=== PATIENT | male | born 1945 | race Caucasian/White ===

== ENCOUNTER 2020-01-01 07:34 | Outpatient (CLI) | payer MEDICARE, SELFPAY ==
[2020-01-01 08:11] LABS: Alanine Aminotransferase 18 U/L (4-50); Albumin Level 4.3 g/dL (3.5-5.1); Alkaline Phosphatase 55 U/L (38-126); Aspartate Amino Transferase 24 U/L (17-59); Bilirubin,Total 1.2 mg/dL (0.2-1.3); Blood Urea Nitrogen 26 mg/dL (9-20); Calcium 8.8 mg/dL (8.4-10.2); Carbon Dioxide 32 mmol/L (22-30); Chloride 101 mmol/L (98-107); Estimated Glomerular Filt Rate > 60; Glucose 109 mg/dL (75-110); Potassium 3.4 mmol/L (3.4-5.0); Sodium 138 mmol/L (137-145)
[2020-01-05 19:36] LABS: PSA, Free 1.87 ng/mL; PSA, Total 7.1 ng/mL (<=4.0); Percent Free Prostate Spec Ag 26 % (>25)
== END 2020-01-01 07:35 | disposition home or self-care (01) ==
LOC: ANHLAB 07:35
PROVIDERS: PCP Family Medicine; Visit Provider Family Medicine
DX: R97.20 Elevated prostate specific antigen [PSA] (principal); I10 Essential (primary) hypertension
CPT/HCPCS: 36415; 80053; 84153; 84154

== ENCOUNTER 2020-11-03 07:39 | Outpatient (CLI) | payer MEDICARE, SELFPAY ==
[2020-11-03 10:06] LABS: Prostate Specific Antigen 7.4 ng/mL (< OR = 4.0)
== END 2020-11-03 07:40 | disposition home or self-care (01) ==
PROVIDERS: PCP Family Medicine; Visit Provider Family Medicine
DX: R97.20 Elevated prostate specific antigen [PSA] (principal)
CPT/HCPCS: 36415; 84153

== ENCOUNTER → 2020-12-13 14:34 | Outpatient (CLI) | payer MEDICARE, SELFPAY ==
--- NOTE | ~2020-12-13 | XR_ITS ---
EXAMINATION: XR lumbar spine 6V w bending EXAM DATE: 12/13/2020 15:36 INDICATION: M54.5 - Low back pain. Right-sided low back pain extending down right leg for one month. TECHNIQUE: Lumber spine frontal, lateral, bilateral oblique projections. Coned down frontal and lat eral L5-S1 lumbar projections for interpretation. The exam was performed on 12/13/2020 15:36. There a re no prior studies for comparison. FINDINGS: There is 2-3 mm retrolisthesis L2 on L3, L3 on L4 and L5 on S1 on the lateral projections. Moderate disc disease at all lumbar levels. L5-S1 vacuum disc phenomenon. Moderate L5-S1 and L4-5 fac et arthropathy, mild to moderate at the levels above. No spondylolysis suspected. Sacrum, sacroiliac joints, sacral arcuate lines are intact. IMPRESSION: 1. Moderate lumbar disc disease and lower lumbar facet arthropathy. Reviewed, dictated and finalized at location A.
== END ==
PROVIDERS: Visit Provider Family Medicine
DX: M51.36 Other intervertebral disc degeneration, lumbar region (principal)
CPT/HCPCS: 72114

== ENCOUNTER 2021-03-29 07:20 | Outpatient (CLI) | payer MEDICARE, SELFPAY ==
[2021-04-01 17:24] LABS: PSA, Free 2.52 ng/mL; PSA, Total 9.1 ng/mL (<=4.0); Percent Free Prostate Spec Ag 28 % (>25)
== END 2021-03-29 07:21 | disposition home or self-care (01) ==
PROVIDERS: PCP Family Medicine; Visit Provider Family Medicine
DX: R97.20 Elevated prostate specific antigen [PSA] (principal)
CPT/HCPCS: 36415; 84153; 84154

== ENCOUNTER 2022-01-17 09:33 | Outpatient (CLI) | payer MEDICARE, SELFPAY ==
--- NOTE | ~2022-01-17 | CT_ITS ---
EXAMINATION: CT abdomen pelvis w con DATE: 01/17/2022 10:06 INDICATION: Checking for prostate cancer TECHNIQUE: Computed tomography (CT) of the abdomen and pelvis was performed with 100 CC Omnipaque 300 intravenous contrast. Automated exposure control and iterative reconstruction technique were employe d. Exam dose: 943.96 mGy-cm total exam DLP. COMPARISON: None. FINDINGS: There is mild discoid atelectasis or scarring at the left lung base. No infiltrate or conso lidation at the lung bases. No pericardial or pleural effusion. There is an approximately 8 mm stone in the dependent aspect of the gallbladder at the gallbladder ne ck. No gallbladder wall thickening or abnormal gallbladder distention or pericholecystic fluid or fat stranding. No hepatic, splenic, pancreatic, adrenal or renal space-occupying mass lesion is evident. No bile bere t or pancreatic duct dilatation Normal morphology of the adrenal glands. No renal mass lesion or urinary tract calculus or hydroureteronephrosis. There is very prominent enlargement of the prostate gland and prominent diffuse thickening of the uri nary bladder wall, likely due to bladder outlet obstruction. There is atherosclerotic calcification but normal caliber of the abdominal aorta and iliac arteries. No intraperitoneal or retroperitoneal or pelvic mass lesion or enlarged lymph nodes are noted. Normal appendix. Minimal colonic diverticulosis; no evidence of diverticulitis. No bowel obstruction or intraperitoneal free air. Bilateral fat-containing inguinal hernias. Degenerative changes of the thoracic and lumbar spine. No suspicious osteolytic or osteoblastic lesio ns are noted. IMPRESSION: Prominent prostate enlargement and diffuse bladder wall thickening consistent with bladd er outlet obstruction Cholelithiasis Minimal colonic diverticulosis Normal appendix Bilateral fat-containing inguinal hernias Reviewed, dictated and finalized at Location A. Reviewed, dictated and finalized at location A. IMPRESSION: Prominent prostate enlargement and diffuse bladder wall thickening consistent with bladder outlet obstruction Cholelithiasis Minimal colonic diverticulosis Normal appendix Bilateral fat-containing inguinal hernias
--- NOTE | ~2022-01-17 | NM_ITS ---
EXAMINATION: NM bone scan whole body DATE: 01/17/2022 14:05 INDICATION: Prostate cancer TECHNIQUE: 23.1 mCi Tc-99m HDP was administered intravenously. Delayed whole-body scintigrams were o btained. COMPARISON: CT abdomen and pelvis dated 01/17/2022 FINDINGS: Mild joint centered uptake at the right ankle and hindfoot as well as a few metacarpophalangeal and i nterphalangeal joints of the bilateral hands and at the superolateral rim of the right acetabulum kne e. There are small marginal osteophytes and degenerative subarticular cystic changes. Mild uptake at the right greater trochanter with small amount of corresponding enthesopathic calcification. No other or foci suspicious bone uptake to suggest metastatic disease. IMPRESSION: 1. No evident metastatic disease. Reviewed, dictated and finalized at location B.
[2022-01-17 09:58] LABS: Estimated Glomerular Filt Rate > 60
== END 2022-01-17 09:34 | disposition home or self-care (01) ==
LOC: ANHIMG 09:35
PROVIDERS: PCP Family Medicine; Visit Provider Urology
DX: C61 Malignant neoplasm of prostate (principal); K80.20 Calculus of gallbladder without cholecystitis without obstruction; K57.30 Diverticulosis of large intestine without perforation or abscess without bleeding; K40.20 Bilateral inguinal hernia, without obstruction or gangrene, not specified as recurrent
CPT/HCPCS: 74177; 78306; A9561; Q9967

== ENCOUNTER 2022-04-06 07:33 | Outpatient (CLI) | payer MEDICARE, SELFPAY ==
[2022-04-06 07:53] LABS: Basophils Percent Auto 0.5 % (0.2-1.2); Eosinophils Absolute Auto 0.5 K/mm3 (0-0.3); Hematocrit 41.6 % (42.0-52.0); Immature Granulocyte Absolute 0.02 K/mm3 (0.00-0.031); Immature Granulocyte Percent A 0.4 % (0-0.5); Lymphocytes Absolute Auto 1.72 K/mm3 (0.9-3.2); Lymphocytes Percent Auto 30.9 % (18.3-44.2); Mean Corpuscular HGB Conc 33.7 g/dl (32-36); Mean Corpuscular Hemoglobin 31.5 pg (26-34); Mean Corpuscular Volume 93.7 fl (80-100); Mean Platelet Volume 9.6 fl (7.4-10.4); Monocytes Absolute Auto 0.6 K/mm3 (0.1-0.6); Monocytes Percent Auto 9.9 % (2.6-8.5); Neutrophils Absolute Auto 2.7 K/mm3 (1.3-6.7); Neutrophils Percent Auto 49.3 % (45.5-73.1); Platelet Count Result 223 k/mm3 (150-375); Red Blood Count 4.44 M/mm3 (4.6-6.20); Red Cell Distribution Width 12.8 % (11.5-14.5); White Blood Count 5.6 K/mm3 (4.5-10.0)
[2022-04-06 08:06] LABS: Alanine Aminotransferase 27 U/L (6-50); Albumin Level 4.4 g/dL (3.5-5.1); Alkaline Phosphatase 55 U/L (38-126); Anion Gap 12 mmol/L (8-16); Aspartate Amino Transferase 28 U/L (17-59); Bilirubin,Total 0.7 mg/dL (0.2-1.3); Blood Urea Nitrogen 29 mg/dL (9-20); Calcium 8.9 mg/dL (8.4-10.2); Carbon Dioxide 32 mmol/L (22-30); Chloride 99 mmol/L (98-107); Cholesterol 243 mg/dL (0-200); Estimated Glomerular Filt Rate > 60; Glucose 111 mg/dL (65-110); HDL Direct 50 mg/dL; Potassium 3.5 mmol/L (3.4-5.0); Sodium 143 mmol/L (137-145); Triglycerides 157 mg/dL (<150)
[2022-04-06 08:17] LABS: LDL Cholesterol Direct 134 mg/dL
[2022-04-06 09:23] LABS: Free T4 Free Thyroxine Reflex 1.14 ng/dL (0.78-2.19)
[2022-04-06 10:13] LABS: Total Triiodothyronine (T3) 1.15 NG/ML (0.97-1.69)
== END 2022-04-06 07:34 | disposition home or self-care (01) ==
LOC: ANHLAB 07:39
PROVIDERS: PCP Family Medicine; Visit Provider Physician Assistant
DX: E78.2 Mixed hyperlipidemia (principal); I10 Essential (primary) hypertension; Z79.899 Other long term (current) drug therapy; Z00.00 Encounter for general adult medical examination without abnormal findings
CPT/HCPCS: 36415; 80053; 80061; 84439; 84443; 84480; 85025

== ENCOUNTER → 2022-12-06 11:05 | Outpatient (CLI) | payer MEDICARE, SELFPAY ==
--- NOTE | ~2022-12-06 | MR_ITS ---
MRI of the lumbar spine Clinical History: Back pain Technique: Axial T2-weighted images, and sagittal T1-weighted, T2-weighted, and T2 fat-sat images wer e acquired. Findings: No fracture identified. There is a 3 mm retrolisthesis of L5 over S1. No suspicious bone ma rrow signal abnormality seen. At L1-L2, there is advanced degenerative disc and mild disc bulge. There is mild to moderate facet ar thropathy. No central canal stenosis. There is mild to moderate bilateral neural foraminal narrowing. At L2-L3, there is diffuse disc bulge and mild to moderate facet arthropathy. There is mild to modera te thecal sac compression/spinal canal stenosis. There is moderate bilateral neural foraminal narrowi ng. At L3-L4, there is disc bulge and facet arthropathy, which contribute to mild to moderate thecal sac compression. There is moderate right neural foraminal narrowing and moderate to severe left neural fo raminal narrowing. At L4-L5, there is disc bulge and facet arthropathy. There is mild central canal stenosis. There is s evere left neural foraminal narrowing and moderate to severe right neural foraminal narrowing. At L5-S1, there is disc bulge and facet arthropathy. No central canal stenosis. There is severe bilat eral neural foraminal narrowing, right worse than left. Paravertebral soft tissues are unremarkable. Impression: Moderate degenerative spondylosis, as noted above. There is multilevel neural foraminal narrowing, as detailed above. There is mild to moderate thecal sac compression at L2-L3, L3-L4, L4-L5, as detailed above. 3 mm retrolisthesis of L5 over S1. Reviewed, dictated and finalized at [facility]. Impression: Moderate degenerative spondylosis, as noted above. There is multilevel neural f oraminal narrowing, as detailed above. There is mild to moderate thecal sac com pression at L2-L3, L3-L4, L4-L5, as detailed above. 3 mm retrolisthesis of L5 over S1.
== END ==
PROVIDERS: PCP Family Medicine; Visit Provider Family Medicine
DX: M47.816 Spondylosis without myelopathy or radiculopathy, lumbar region (principal); M43.17 Spondylolisthesis, lumbosacral region
CPT/HCPCS: 72148

== ENCOUNTER 2022-12-09 07:32 | Outpatient (CLI) | payer MEDICARE, SELFPAY ==
[2022-12-09 09:11] LABS: Alanine Aminotransferase 26 U/L (6-50); Albumin Level 4.2 g/dL (3.5-5.1); Alkaline Phosphatase 54 U/L (38-126); Anion Gap 3 mmol/L (8-16); Aspartate Amino Transferase 30 U/L (17-59); Blood Urea Nitrogen 20 mg/dL (9-20); Calcium 9.1 mg/dL (8.4-10.2); Carbon Dioxide 37 mmol/L (22-30); Chloride 99 mmol/L (98-107); Cholesterol 230 mg/dL (0-200); Estimated Glomerular Filt Rate > 60; Glucose 94 mg/dL (65-110); HDL Direct 50 mg/dL; Potassium 3.4 mmol/L (3.4-5.0); Sodium 139 mmol/L (137-145); Triglycerides 175 mg/dL (<150)
[2022-12-09 09:22] LABS: LDL Cholesterol Direct 125 mg/dL
[2022-12-09 10:27] LABS: Hemoglobin A1C 5.2 % (<5.7)
== END 2022-12-09 07:33 | disposition home or self-care (01) ==
PROVIDERS: PCP Family Medicine; Visit Provider Family Medicine
DX: E78.2 Mixed hyperlipidemia (principal); E03.8 Other specified hypothyroidism; R73.01 Impaired fasting glucose; Z79.899 Other long term (current) drug therapy
CPT/HCPCS: 36415; 80053; 80061; 83036; 84443

== ENCOUNTER 2022-12-18 09:00 | Outpatient (NON) | payer MEDICARE, SELFPAY | END 2022-12-18 09:01 | disposition home or self-care (01) | LOC: ANHLAB 12-19 07:05 | PROVIDERS: PCP Family Medicine; Visit Provider Internal Medicine Gastroenterology | DX: Z12.11 Encounter for screening for malignant neoplasm of colon (principal) | CPT/HCPCS: 88305 ==

== ENCOUNTER 2023-05-01 06:58 | Outpatient (CLI) | payer MEDICARE, SELFPAY ==
[2023-05-01 07:46] LABS: Basophils Percent Auto 0.5 % (0.2-1.2); Eosinophils Absolute Auto 0.4 K/mm3 (0-0.3); Eosinophils Percent Auto 9.8 % (0-4.4); Hematocrit 36.9 % (42.0-52.0); Hemoglobin 11.7 g/dL (14.0-18.0); Immature Granulocyte Absolute 0.01 K/mm3 (0.00-0.031); Immature Granulocyte Percent A 0.2 % (0-0.5); Lymphocytes Absolute Auto 1.11 K/mm3 (0.9-3.2); Lymphocytes Percent Auto 26.5 % (18.3-44.2); Mean Corpuscular HGB Conc 31.7 g/dl (32-36); Mean Corpuscular Hemoglobin 31.1 pg (26-34); Mean Corpuscular Volume 98.1 fl (80-100); Mean Platelet Volume 10.1 fl (7.4-10.4); Monocytes Absolute Auto 0.5 K/mm3 (0.1-0.6); Monocytes Percent Auto 12.9 % (2.6-8.5); Neutrophils Absolute Auto 2.1 K/mm3 (1.3-6.7); Neutrophils Percent Auto 50.1 % (45.5-73.1); Platelet Count Result 183 k/mm3 (150-375); Red Blood Count 3.76 M/mm3 (4.6-6.20); Red Cell Distribution Width 13.5 % (11.5-14.5); White Blood Count 4.2 K/mm3 (4.5-10.0)
[2023-05-01 08:54] LABS: Alanine Aminotransferase 46 U/L (6-50); Albumin Level 4.2 g/dL (3.5-5.1); Alkaline Phosphatase 51 U/L (38-126); Anion Gap 7 mmol/L (8-16); Aspartate Amino Transferase 35 U/L (17-59); Blood Urea Nitrogen 26 mg/dL (9-20); Calcium 9.2 mg/dL (8.4-10.2); Carbon Dioxide 29 mmol/L (22-30); Chloride 103 mmol/L (98-107); Cholesterol 186 mg/dL (0-200); Estimated Glomerular Filt Rate > 60; Glucose 99 mg/dL (65-110); HDL Direct 48 mg/dL; Potassium 3.2 mmol/L (3.4-5.0); Sodium 139 mmol/L (137-145); Triglycerides 123 mg/dL (<150)
[2023-05-01 09:04] LABS: LDL Cholesterol Direct 102 mg/dL
[2023-05-01 09:42] LABS: Hepatitis C Virus Antibody Negative (Negative)
[2023-05-01 11:47] LABS: Free T4 Free Thyroxine Reflex 1.07 ng/dL (0.78-2.19)
[2023-05-01 13:10] LABS: Total Triiodothyronine (T3) 1.19 NG/ML (0.97-1.69)
== END 2023-05-01 06:59 | disposition home or self-care (01) ==
LOC: ANHLAB 07:00
PROVIDERS: PCP Family Medicine; Visit Provider Physician Assistant
DX: E78.2 Mixed hyperlipidemia (principal); I10 Essential (primary) hypertension; E66.9 Obesity, unspecified; Z79.899 Other long term (current) drug therapy
CPT/HCPCS: 36415; 80053; 80061; 84439; 84443; 84480; 85025; 86803

== ENCOUNTER 2023-05-03 07:37 | Outpatient (CLI) | payer MEDICARE, SELFPAY ==
[2023-05-03 08:53] LABS: Basophils Percent Auto 0.8 % (0.2-1.2); Eosinophils Absolute Auto 0.4 K/mm3 (0-0.3); Eosinophils Percent Auto 10.1 % (0-4.4); Hemoglobin 11.6 g/dL (14.0-18.0); Immature Granulocyte Absolute 0.01 K/mm3 (0.00-0.031); Immature Granulocyte Percent A 0.3 % (0-0.5); Lymphocytes Absolute Auto 0.96 K/mm3 (0.9-3.2); Lymphocytes Percent Auto 24.8 % (18.3-44.2); Mean Corpuscular HGB Conc 33.1 g/dl (32-36); Mean Corpuscular Hemoglobin 31.5 pg (26-34); Mean Corpuscular Volume 95.1 fl (80-100); Mean Platelet Volume 10.5 fl (7.4-10.4); Monocytes Absolute Auto 0.5 K/mm3 (0.1-0.6); Monocytes Percent Auto 13.2 % (2.6-8.5); Neutrophils Percent Auto 50.8 % (45.5-73.1); Platelet Count Result 190 k/mm3 (150-375); Red Blood Count 3.68 M/mm3 (4.6-6.20); Red Cell Distribution Width 13.4 % (11.5-14.5); Reticulocyte Hemoglobin Conten 34.2 pg (28.2-35.7); Reticulocyte Percent 2.26 % (0.7-4.3); Reticulocytes Absolute 0.08 M/mm3 (0.02-0.1); White Blood Count 3.9 K/mm3 (4.5-10.0)
[2023-05-03 09:11] LABS: Anion Gap 6 mmol/L (8-16); Blood Urea Nitrogen 22 mg/dL (9-20); Calcium 9.2 mg/dL (8.4-10.2); Carbon Dioxide 30 mmol/L (22-30); Chloride 100 mmol/L (98-107); Estimated Glomerular Filt Rate > 60; Glucose 106 mg/dL (65-110); Potassium 3.2 mmol/L (3.4-5.0); Sodium 136 mmol/L (137-145)
== END 2023-05-03 07:38 | disposition home or self-care (01) ==
LOC: ANHLAB 07:38
PROVIDERS: PCP Family Medicine; Visit Provider Family Medicine
DX: D64.9 Anemia, unspecified (principal); E87.6 Hypokalemia
CPT/HCPCS: 36415; 80048; 82728; 84443; 85025; 85046

== ENCOUNTER 2023-05-12 08:01 | Emergency (ER) | payer MEDICARE, SELFPAY ==
--- NOTE | ~2023-05-12 | XR_ITS ---
EXAMINATION: XR chest 2V DATE: 05/12/2023 08:24 INDICATION: Cough and wheezing TECHNIQUE: Frontal and lateral views of the chest are obtained COMPARISON: None available FINDINGS: There is mild interstitial pattern of the lung bases. There are small pleural effusions. No pneumothorax is identified. The cardiomediastinal silhouette is normal. There is moderate thoracic s pondylosis. IMPRESSION: 1. Mild pulmonary edema and small pleural effusions. Reviewed, dictated and finalized at location F.
[2023-05-12 08:13] VITALS: BP 188/89; PULSE 55; RESP 18; TEMP 36.1; O2SAT 96
--- NOTE | 2023-05-12 08:17 | ED.URI ---
HPI - URI/Sore Throat General Chief Complaint: Upper Respiratory Infection Stated Complaint: COUGH/WHEEZING Source: patient, family and RN notes reviewed History of Present Illness HPI Narrative: 78 yo M presents to urgent care with complaints of having sinus and respiratory issues for over a month. Pt states he took a course of Doxycycline with not much improvement. Pt reports continued congestion, cough, and wheezing. Pt states his symptoms are intermittent and mostly in the morning. Pt states his symptoms will sometimes improve throughout the day and sometimes not. Pt does admit being around a bonfire last night. Pt states he and his are leaving for [place] at the end of the week and he is hoping to feel better. Denies any fevers, chills, N/V, or chest pain. States he sometimes feels SOB. Pt did use his 's inhaler the other day with good relief. Related Data Home Medications Medication Instructions Recorded Confirmed timolol maleate 0.5 % eye drops 1 drop LEFT EYE DAILY 06/26/19 05/12/23 antiarthritic combination no.2 900 900 mg PO BID 03/02/20 05/12/23 mg tablet (glucosamine-chondroitin) aspirin 81 mg tablet,delayed 81 mg PO DAILY 03/02/20 05/12/23 release fluorouracil 5 % topical cream 1 applic topical BID PRN 11/05/20 05/12/23 Inflammation ibuprofen 200 mg tablet (IBU-200) 200 mg PO Q6H PRN Pain 12/08/22 05/12/23 calcium carbonate 600 mg-vitamin 600 tablet PO DAILY 03/05/23 05/12/23 D3 10 mcg (400 unit) chewable tablet (Calcium 600 with Vitamin D3) losartan 100 1 tablet PO DAILY 05/12/23 05/12/23 mg-hydrochlorothiazide 25 mg tablet Allergies Allergy/AdvReac Type Severity Reaction Status Date / Time Sulfa (Sulfonamide Allergy Intermediate RASH Verified 05/12/23 08:23 Antibiotics) lisinopril Allergy Unknown cough Verified 05/12/23 08:23 Penicillins Allergy Unknown Unknown Verified 05/12/23 08:23 potassium chloride Allergy Unknown Skin Verified 05/12/23 08:23 Reaction strawberry Allergy Unknown Skin Verified 05/12/23 08:23 Reaction sulfite Allergy Unknown Unknown Verified 05/12/23 08:23 Review of Systems Review of Systems: Pertinent positives and pertinent negatives per HPI. [facility] Past Medical History Medical History Chronic low back pain Chronic prostatitis Drug-induced glaucoma Essential (primary) hypertension Hx of radiation therapy Mixed hyperlipidemia Obesity (BMI 30-39.9) Prostate cancer Naila 9 Radiation Family History Family History Grandparent Diabetes mellitus Mother Diabetes mellitus Family history of kidney disease Father Family history of cardiovascular disease Other Hypertension Social History Social History Smoking status: Former smoker Smoking end date: 07/09/83 Alcohol intake: current Alcohol use details: 5x weekly Substance use: never Substance use type: does not use Lack of Transportation: No Lack of Food: Never True Current Housing: I Have Housing Concerned About Future Housing: No Difficulty Paying Gas/Electric Bills: No Difficulty Paying for Meds: No Currently Unemployed: No Education: High School Diploma/GED Difficulty w/ Childcare or Family Care: No Living arrangements: with family Spiritual care concerns: No Comments At the time of my signature, I reviewed and agree with the nursing past medical, surgical, social, and family history. There is no relevant family history pertinent to the patient complaint. Exam Narrative: GENERAL: This is a well-nourished, well-developed patient, in no apparent distress. HEAD: normocephalic, atraumatic. EYES: Sclera clear/white. Vision is grossly intact. EARS: External ears normal, auditory canals clear and without drainage, TMs normal without perforation. Hearing grossly intact.
== END 2023-05-12 09:00 | disposition home or self-care (01) ==
PROVIDERS: Emergency Provider Nurse Practitioner Family; PCP Family Medicine
DX: J40 Bronchitis, not specified as acute or chronic (principal); J32.9 Chronic sinusitis, unspecified; I10 Essential (primary) hypertension; E78.2 Mixed hyperlipidemia; Z85.46 Personal history of malignant neoplasm of prostate; Z79.899 Other long term (current) drug therapy; Z79.1 Long term (current) use of non-steroidal anti-inflammatories (NSAID); Z87.891 Personal history of nicotine dependence
CPT/HCPCS: 71046; 99213; G0463

== ENCOUNTER 2023-06-22 07:17 | Outpatient (CLI) | payer MEDICARE, SELFPAY ==
[2023-06-22 08:05] LABS: Anion Gap 6 mmol/L (8-16); Blood Urea Nitrogen 22 mg/dL (9-20); Calcium 8.9 mg/dL (8.4-10.2); Carbon Dioxide 29 mmol/L (22-30); Chloride 107 mmol/L (98-107); Estimated Glomerular Filt Rate > 60; Glucose 104 mg/dL (65-110); Potassium 3.6 mmol/L (3.4-5.0); Sodium 142 mmol/L (137-145)
== END 2023-06-22 07:18 | disposition home or self-care (01) ==
LOC: ANHLAB 07:18
PROVIDERS: PCP Family Medicine; Visit Provider Family Medicine
DX: E03.9 Hypothyroidism, unspecified (principal); E87.6 Hypokalemia
CPT/HCPCS: 36415; 80048; 84443

== ENCOUNTER 2023-10-09 07:09 | Outpatient (CLI) | payer MEDICARE, SELFPAY ==
[2023-10-09 07:59] LABS: Alanine Aminotransferase 18 U/L (6-50); Albumin Level 4.1 g/dL (3.5-5.1); Alkaline Phosphatase 65 U/L (38-126); Anion Gap 5 mmol/L (4-12); Aspartate Amino Transferase 24 U/L (17-59); Bilirubin,Total 0.9 mg/dL (0.2-1.3); Blood Urea Nitrogen 28 mg/dL (9-20); Carbon Dioxide 28 mmol/L (22-30); Chloride 107 mmol/L (98-107); Estimated Glomerular Filt Rate > 60; Glucose 104 mg/dL (65-110); Potassium 3.7 mmol/L (3.4-5.0); Sodium 140 mmol/L (137-145)
== END 2023-10-09 07:10 | disposition home or self-care (01) ==
PROVIDERS: PCP Family Medicine; Visit Provider Family Medicine
DX: E03.9 Hypothyroidism, unspecified (principal); E87.6 Hypokalemia
CPT/HCPCS: 36415; 80053; 84443

== ENCOUNTER 2023-12-14 13:22 | Outpatient (CLI) | payer MEDICARE, SELFPAY ==
--- NOTE | ~2023-12-14 | MR_ITS ---
Procedure: MR lumbar spine wo con Ordering provider: Kiran Briceno MD History: 78 years Male with . LUMBAR FORAMINAL STENOSIS . Comparison: December 06, 2022 Technique: MRI lumbar spine without contrast. FINDINGS: CONUS MEDULLARIS: Normal in position and appearance. The cord ends at the level of L1. LUMBAR VERTEBRAL BODIES: Minimal retrolisthesis of the level of L5-S1. No compression fracture or sub luxation. Normal marrow signal. DISK SPACES: Narrowing of the disc spaces L1-L2, L2-L3, L3-L4, L4-L5 and L5-S1. T12-L1: No stenosis. L1-L2: No stenosis. Diffuse disc bulge with bilateral narrowing of the foramina. No root compression . L2-L3: No stenosis. Diffuse disc bulge with bilateral narrowing of the foramina. Bilateral root comp ression. L3-L4: No stenosis. Diffuse disc bulge with bilateral narrowing of the foramina. Bilateral root compr ession. L4-L5: No stenosis. Diffuse disc bulge with bilateral narrowing of the foramina. Bilateral root comp ression. Bilateral facet joint disease. L5-S1: No stenosis. Diffuse disc bulge with bilateral narrowing of the foramina. Bilateral root comp ression. PARASPINOUS SOFT TISSUES: Normal. IMPRESSION: 1. Multilevel degenerative disc disease with multiple disc bulges and with neural impingement. No si gnificant change from previous examination. Reviewed, dictated and finalized at location A. IMPRESSION: 1. Multilevel degenerative disc disease with multiple disc bulges and with miguel ral impingement. No significant change from previous examination.
== END 2023-12-14 13:23 ==
PROVIDERS: PCP Neurological Surgery; Visit Provider Neurological Surgery
DX: M48.061 Spinal stenosis, lumbar region without neurogenic claudication (principal); M51.36 Other intervertebral disc degeneration, lumbar region
CPT/HCPCS: 72148

== ENCOUNTER 2024-02-28 07:19 | Outpatient (CLI) | payer MEDICARE, SELFPAY ==
[2024-02-28 08:01] LABS: Anion Gap 7 mmol/L (4-12); Blood Urea Nitrogen 24 mg/dL (9-20); Calcium 9.1 mg/dL (8.4-10.2); Carbon Dioxide 31 mmol/L (22-30); Chloride 102 mmol/L (98-107); Estimated Glomerular Filt Rate > 60; Glucose 99 mg/dL (65-110); Potassium 3.9 mmol/L (3.4-5.0); Sodium 140 mmol/L (137-145)
== END 2024-02-28 07:20 | disposition home or self-care (01) ==
LOC: ANHLAB 07:21
PROVIDERS: PCP Family Medicine; Visit Provider Family Medicine
DX: E87.6 Hypokalemia (principal); E03.9 Hypothyroidism, unspecified
CPT/HCPCS: 36415; 80048; 84443

== ENCOUNTER 2024-05-01 10:42 | Outpatient (CLI) | payer MEDICARE, SELFPAY ==
--- NOTE | ~2024-05-01 | MR_ITS ---
EXAMINATION: MR lumbar spine wo/w con DATE: 05/01/2024 11:35 INDICATION: Lumbar foraminal stenosis. TECHNIQUE: Magnetic resonance imaging (MRI) of the lumbar spine was performed without and with 20 mL MultiHance intravenous contrast. COMPARISON: Lumbar spine MRI 12/14/23 FINDINGS: There is 6 degrees dextrocurvature of lumbar spine. There is 3 mm retrolisthesis of L1 on L 2, L2 on L3, and L3 on L4. There is mild chronic anterior wedging of T11-L1 vertebral bodies. There i s moderately decreased disc height at L1-L2, severely decreased disc height at L2-L3 and L3-L4, moder ately decreased disc height at L4-L5, and severely decreased disc height at L5-S1. The distal spinal cord signal intensity is normal. The conus medullaris is at L1. There is clumping of the cauda equina at L3-L4, consistent with arachnoiditis. The following disc levels are specifically discussed: L1-L2: The disc is bulging. There is mild bilateral facet joint osteoarthritis. There is moderate susan ateral neural foraminal stenosis. There is mild central canal stenosis. L2-L3: The disc is bulging. There is mild bilateral facet joint osteoarthritis. There is mild right a nd moderate left neural foraminal stenosis. There is mild central canal stenosis. L3-L4: The disc is bulging. There is mild bilateral facet joint osteoarthritis. There is moderate susan ateral neural foraminal stenosis. There is mild central canal stenosis. L4-L5: The disc is bulging and has an annular fissure. There is mild right and moderate left facet louis int osteoarthritis. There is moderate bilateral neural foraminal stenosis. There is mild central seamus l stenosis. L5-S1: The disc is bulging and has an annular fissure. There is moderate bilateral facet joint osteoa rthritis. There is moderate bilateral neural foraminal stenosis. There is mild central canal stenosis . IMPRESSION: 1. Severe lumbar spondylosis, stable from 12/14/23. 2. Arachnoiditis. Reviewed, dictated and finalized at location A.
== END 2024-05-01 10:43 | disposition home or self-care (01) ==
PROVIDERS: PCP Family Medicine; Visit Provider Neurological Surgery
DX: M47.816 Spondylosis without myelopathy or radiculopathy, lumbar region (principal); G03.9 Meningitis, unspecified
CPT/HCPCS: 72158; A9577

== ENCOUNTER 2024-06-17 14:26 | Outpatient (CLI) | payer MEDICARE, SELFPAY ==
--- NOTE | ~2024-06-17 | XR_ITS ---
XR hip RT 2V w AP pelvis Ordering provider: Nico Jose MD History: . M25.559 - Pain in unspecified hip . Comparison: None. FINDINGS: BONES: No acute fracture. 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 HIP JOINT SPACES: Normal on the left side. Narrowing of the right side with AVN and subluxation. SACROILIAC JOINT SPACES/LUMBAR SPINE: The sacroiliac joint spaces are normal. Mild degenerative hampton es of the visualized lower lumbar spine. PUBIC SYMPHYSIS: Normal. SOFT TISSUES: Normal. 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 Reviewed, dictated and finalized at location A. S CHECKER
--- NOTE | ~2024-06-17 | MR_ITS ---
MRI of the right hip Clinical history: Pain Technique: Coronal T1-weighted, T2-weighted, and proton-density fat-sat images, and axial T1-weighted and proton-density fat-sat images were acquired through the pelvis. Coronal T2-weighted images and c oronal, axial, and sagittal proton-density fat-sat images were acquired through the right hip. COMPARISON: CT scan dated 01/17/2022 Findings: There is severe osteoarthritis of the right hip joint. There is articular surface irregular ity and marked flattening of the superior aspect of the femoral head. There is also irregularity and remodeling of the right acetabulum. There is extensive marrow edema about the right acetabulum and ri ght femoral head, with areas of subchondral cystic change in the right acetabulum. There is large rig ht hip joint effusion. Probable extensive degenerative labral tearing of the right hip joint. Left hip joint demonstrate mild diffuse chondromalacia, but is otherwise intact. No left hip joint ef fusion. Visual is musculature about the pelvis and right hip is unremarkable. No muscle atrophy or edema. Vis ualized tendons appear intact. No soft tissue mass or other fluid collection seen. IMPRESSION: Markedly severe osteoarthritic change of the right hip joint, as detailed above. Given the severity t he findings, and essentially normal right hip joint on prior CT scan of 01/17/2022, findings suggest r apidly destructive osteoarthritis of the right hip joint. Interval development of avascular necrosis (since 01/17/2022) with subsequent articular surface collapse and secondary severe osteoarthritis woul d be a potential alternative consideration. Septic arthritis is not completely excluded, though felt to be significantly less likely given the relative lack of hypointense T1 marrow signal. Associated large right hip joint effusion, presumably reactive. Reviewed, dictated and finalized at location M. [employer] PROGRAMMER IMPRESSION: Markedly severe osteoarthritic change of the right hip joint, as detailed above . Given the severity the findings, and essentially normal right hip joint on pr ior CT scan of 01/17/2022, findings suggest rapidly destructive osteoarthritis o f the right hip joint. Interval development of avascular necrosis (since 022) with subsequent articular surface collapse and secondary severe osteoarthr itis would be a potential alternative consideration. Septic arthritis is not co mpletely excluded, though felt to be significantly less likely given the relati ve lack of hypointense T1 marrow signal. Associated large right hip joint effusion, presumably reactive.
== END 2024-06-17 14:27 | disposition home or self-care (01) ==
LOC: GOSHIMG 14:27
PROVIDERS: PCP Family Medicine; Visit Provider Family Medicine
DX: M54.50 Low back pain, unspecified (principal); G89.29 Other chronic pain; M25.451 Effusion, right hip; M16.11 Unilateral primary osteoarthritis, right hip
CPT/HCPCS: 73502; 73721

== ENCOUNTER 2024-07-17 13:29 | Emergency (ER) | payer MEDICARE, SELFPAY ==
--- NOTE | 2024-07-17 13:39 | ED.URI ---
HPI - URI/Sore Throat General Chief Complaint: Upper Respiratory Infection Stated Complaint: Chest Congestion Time Seen by Provider: 07/17/24 13:39 Source: patient, RN notes reviewed and old records reviewed Mode of arrival: ambulatory Limitations: no limitations History of Present Illness HPI Narrative: Patient presents with sinus pain and congestion that been present for about 10 days. He reports copious postnasal drainage that is triggering him to cough. He denies any respiratory distress, he is speaking complete sentences with no difficulty. He does not believe he has been running a fever. He does report that he is more tired than normal, poor sleep secondary to cough Related Data Home Medications ?Medication ?Instructions ?Recorded ?Confirmed ?Last Taken ?Type timolol maleate 0.5 % eye drops 1 drop LEFT EYE DAILY 06/26/19 07/17/24 Unknown History antiarthritic combination no.2 900 900 mg PO BID 03/02/20 07/17/24 Unknown History mg tablet (glucosamine-chondroitin) aspirin 81 mg tablet,delayed 81 mg PO DAILY 03/02/20 07/17/24 Unknown History release ibuprofen 200 mg tablet (IBU-200) 200 mg PO Q6H PRN Pain 12/08/22 06/12/24 Unknown History calcium 600 mg (as carbonate)-vit 600 tablet PO DAILY 03/05/23 07/17/24 Unknown History D3 10 mcg (400 unit) chewable tablet (Calcium 600 with Vitamin D3) fexofenadine 60 mg tablet (Rachael 60 mg PO Q12H 03/05/24 07/17/24 Unknown History Allergy) leuprolide acetate (6 month) 45 mg 45 mg subcut [id number] 03/05/24 06/12/24 Unknown History (6 month) subcutaneous syringe (Eligard) gabapentin 300 mg capsule 300 mg PO Q8H 07/17/24 07/17/24 Unknown History Allergies Allergy/AdvReac Type Severity Reaction Status Date / Time Sulfa (Sulfonamide Allergy Intermediate RASH Verified 07/17/24 13:30 Antibiotics) lisinopril Allergy Unknown cough Verified 07/17/24 13:30 Penicillins Allergy Unknown Unknown Verified 07/17/24 13:30 potassium chloride Allergy Unknown Skin Verified 07/17/24 13:30 Reaction strawberry Allergy Unknown Skin Verified 07/17/24 13:30 Reaction sulfite Allergy Unknown Unknown Verified 07/17/24 13:30 Review of Systems Review of Systems: All systems reviewed & are unremarkable except as noted in HPI and below Constitutional: Constitutional: Reports as per HPI and Reports no additional constitutional complaints ENT: Reports system reviewed and no additional complaints, except as documented, Reports nasal congestion, Reports sinus pain, Reports sinus pressure and Reports sore throat Cardiovascular: Cardiovascular: Reports no additional cardiovascular complaints Respiratory: Respiratory: Reports no additional respiratory complaints Gastrointestinal: Gastrointestinal: Reports no additional gastrointestinal complaints [facility] Past Medical History Medical History Chronic low back pain Chronic prostatitis Drug-induced glaucoma Essential (primary) hypertension Hx of radiation therapy Mixed hyperlipidemia Obesity (BMI 30-39.9) Prostate cancer Naila 9 Radiation Surgical History Surgical History History of back surgery Family History Family History Grandparent Diabetes mellitus Mother Diabetes mellitus Family history of kidney disease Father Family history of cardiovascular disease Other Hypertension Social History Social History Smoking status: Former smoker Smoking end date: 07/09/83 Alcohol intake: current Alcohol use details: 5x weekly Substance use: never Substance use type: does not use Lack of Transportation: No Lack of Food: Never True Current Housing: I Have Housing Concerned About Future Housing: No Difficulty Paying Gas/Electric Bills: No Difficulty Paying for Meds: No Currently Unemployed: No Education: High School Diploma/GED Difficulty w/ Childcare or Family Care: No Living arrangements: with family Spiritual care concerns: No Comments At the time of my signature, I reviewed and agree with the nursing past medical, surgical, social, and family history. There is no relevant family history pertinent to the patient complaint. Exam Const: General: cooperative, no acute distress, alert and awake Orientation/consciousness: oriented to person, oriented to place and oriented to time HENMT: Head: normal to inspection Face/Nose/Sinus: sinus tenderness Mouth: Yes moist mucous membranes Throat: posterior oropharynx abnormal erythema Resp: Effort & Inspection: normal respiratory effort and able to speak in complete sentences Auscultation: clear to auscultation bilaterally, no crackles, no rales, no rhonchi, no wheezes and diminished lung sounds Cardio: Palpation: normal PMI Rate: regular rate Rhythm: regular rhythm Heart sounds: S1 normal heart sound present and S2 normal heart sound present Neuro: General: oriented to person, oriented to place and oriented to time Cranial nerves: Yes CN's II-XII intact bilaterally Psych: Appearance: grossly normal Thought process: Normal thought process present Insight: Good insight present (Psych) Judgement: Good judgement present (Psych) Course Course Level of Care: Express Care Visit Vital Signs Vital signs: Vital Signs Temperature 97.3 F L 07/17/24 13:41 Pulse Rate 58 L 07/17/24 13:41 Respiratory Rate 16 07/17/24 13:41 Blood Pressure 189/102 H 07/17/24 13:41 Pulse Oximetry 100 07/17/24 13:41 Temperature 97.3 F L 07/17/24 13:41 Pulse Rate 58 L 07/17/24 13:41 Respiratory Rate 16 07/17/24 13:41 Blood Pressure 189/102 H 07/17/24 13:41 Pulse Oximetry 100 07/17/24 13:41 Oxygen Delivery Room Air 07/17/24 13:45 Reviewed MDM - URI/Sore Throat MDM Narrative Medical decision making narrative: BP recheck 160/90. Patient not in any distress. History and exam consistent with sinusitis. Patient nontoxic. And stable for discharge home on p.o. antibiotic therapy. Discharge instructions reviewed with patient, as well as provided in writing per nursing staff. The instructions also include specific and strict return/GO TO THE ER as well as f/u information. All questions have been answered, and the patient deny any further questions with discharge and discharge plan. Some parts of this dictation were generated by voice recognition software and may contain typographical and/or grammatical inaccuracies. Differential Diagnosis Differential diagnosis: Likely upper respiratory infection, otitis media, sinusitis and viral infection Medical Records Attestation: I reviewed the patient's medical records. Discharge Plan Discharge Clinical Impression: Sinusitis Qualifiers: Sinusitis location: unspecified location Chronicity: acute Recurrence: not specified as recurrent Qualified Code(s): J01.90 - Acute sinusitis, unspecified Patient Disposition: Home, Self-Care Condition: Stable Instructions: Antibiotic Form, Sinusitis (ED) Additional Instructions: Take medications as prescribed. Follow with primary care provider. Emergency department for any new or worse symptoms Patient Language: Thai Prescriptions: New doxycycline hyclate 100 mg capsule 100 mg PO BID Qty: 20 0RF No Action gabapentin 300 mg capsule 300 mg PO Q8H timolol maleate 0.5 % drops 1 drop LEFTEYE DAILY aspirin 81 mg tablet,delayed release (DR/EC) 81 mg PO DAILY glucosamine-chondroitin 900 mg tablet 900 mg PO BID Calcium 600 with Vitamin D3 600 mg-10 mcg (400 unit) tablet,chewable 600 tablet PO DAILY Eligard (6 month) 45 mg syringe 45 mg subcut [id number] fexofenadine [Rachael Allergy] 60 mg tablet 60 mg PO Q12H ibuprofen [IBU-200] 200 mg tablet 200 mg PO Q6H PRN (Reason: Pain) fluticasone propionate [Flonase Allergy Relief] 50 mcg/actuation spray,suspension 2 spray intranasal DAILY Qty: 48 1RF Rx Instructions: administer into each nostril irbesartan 150 mg tablet 150 mg PO DAILY Qty: 90 1RF levothyroxine [Synthroid] 75 mcg tablet 75 mcg PO DAILY Qty: 90 1RF terbinafine HCl 250 mg tablet 250 mg PO DAILY Qty: 90 0RF hydrochlorothiazide 12.5 mg tablet 12.5 mg PO DAILY Qty: 90 1RF Follow-up/Referrals: Nico Jose MD [Primary Care Provider] - 2 Weeks Time of Disposition: 14:03
[2024-07-17 13:41] VITALS: BP 189/102; PULSE 58; RESP 16; TEMP 36.3; O2SAT 100
== END 2024-07-17 14:08 | disposition home or self-care (01) ==
PROVIDERS: Emergency Provider Nurse Practitioner Family; PCP Family Medicine
DX: J01.90 Acute sinusitis, unspecified (principal); I10 Essential (primary) hypertension; E78.2 Mixed hyperlipidemia; E66.9 Obesity, unspecified; Z68.33 Body mass index [BMI] 33.0-33.9, adult; Z87.891 Personal history of nicotine dependence; Z85.46 Personal history of malignant neoplasm of prostate; Z92.3 Personal history of irradiation; Z79.82 Long term (current) use of aspirin
CPT/HCPCS: 99213; G0463

== ENCOUNTER 2024-12-04 07:05 | Outpatient (CLI) | payer MEDICARE, SELFPAY ==
--- OUTSIDE RECORDS SUMMARY | 2024-12-04 07:07 | XMS_ITS | Clinical Summary ---
Author Organization [facility] Address [address], [address] [address] Phone Care Team Providers Care Water Treatment Plant Supervisor Name Role Phone Nico Jose MD Primary Care Provider [phone] Allergies Active Allergy Reactions Criticality Noted Date Comments Penicillins Unknown 06/18/2017 Sulfa Antibiotics Unknown 06/18/2017 Medications hydroCHLOROthiaz augustine 25 MG Tablet Take 1 Tab by mouth daily. 3 04/02/2017 Active Aspirin 81 MG Tablet Take 81 mg by mouth daily. Active Family History Medical History Relation Name Comments Heart Disease Father Lung Cancer Maternal Grandmother Diabetes Mother Hypertension Mother Relation Name Status Comments Father Maternal Grandmother Mother Social History Tobacco Use Types Packs/Day Years Used Date Smoking Tobacco: Former Cigarettes 1 16 Smokeless Tobacco: Never Alcohol Use Standard Drinks/Week Comments Yes 1 (1 standard drink = 0.6 oz pur e alcohol) Sex and Gender Information Value Date Recorded Sex Assigned at Not on file Legal Sex Male 7:29 AM CDT Gender Identity Not on file Sexual Orientation Not on file Plan of Treatment Health Maintenance Due Date Last Done Comments Hepatitis C Virus (HCV) Screening 1945 TdaP Immunization 1945 Pneumococcal Immunization (5 0+ years) (1 of 1 - PCV) 1996 Zoster Immunization (1 of 2) 1996 Respiratory Syncytial Virus (RSV) Immunization (Adult) (1 - 1-dose 75+ series) 2021 Influenza Immunization (#1) 2024 SARS-COV-2 Immunization ( season) 2024 Colonoscopy High Risk Discontinued 06/13/2017 Colonoscopy Discontinued 06/13/2017 Colorectal Cancer Screening Discontinued Cologuard Discontinued Hepatitis B Immunization Aged Out No longer eligible based on patient's age to complete this topic Immunochemical Fecal Occult Blood Discontinued Meningococcal Immunization (ACWY) Aged Out No longer eligible based on patient's age to complete this topic Rotavirus Immunization Aged Out No lo nger eligible based on patient's age to complete this topic Procedures Procedure Name Priority Date/Time Associated Diagnosis Comments COLONOSCOPY Routine 06/13/2017 from Last 3 Months or Most Recently Relevant to Health Maintenance Results * COLONOSCOPY (06/13/2017) Maxi Diaz DO PROCEDURE/MINOR SURGICAL ORDERA BLES Final Result from Last 3 Months or Most Recently Relevant to Health Maintenance Insurance MEDICARE Care Teams Water Treatment Plant Supervisor Relationship Specialty Start Date End Date Nico Jose MD [address] [place] [address] [address] [place] [address] PCP - General Family Medicine 06/20/17
--- OUTSIDE RECORDS SUMMARY | 2024-12-04 07:07 | XMS_ITS | Continuity of Care Document ---
Author Name [facility] Organization [facility] Care Team Providers Care Gamer Name Role Phone [facility] Unavailable Unavailable Encounters Combined list of: 1) Encounters from [facility] facilities going backup to the last 18 months, not all VA inpatient encounters are included; 2) Encounters from the Department of [facility] facilities going backup to 280 months. Location Location Details Encounter Type Encounter Number Reason For Visit Attending Provider ADM Date DC Date Status Disposition Source [facility] Outpatient Encounter [id number] 06/12 [facility] Outpatient Encounter [id number] 06/26 [facility]
--- OUTSIDE RECORDS SUMMARY | 2024-12-04 07:07 | XMS_ITS | Referral Summary ---
Author Organization [facility] Address [address] [place] [address] Care Team Providers Care Lead Cargo Mover Name Role Phone Nico Jose MD Primary Care Provider [phone] Huseyin Carver MD Unavailable [phone] Allergies Active Allergy Reactions Criticality Noted Date Comments Chlorhexidine Rash Medium 07/31/2024 Penicillins Anaphylaxis High 07/16/2024 1990s Sulfa Anaphylaxis High 07/16/2024 Medications gabapentin (NEURONTIN) 300 mg capsule Take 1 capsule (300 mg total) by mouth 2 (two) times a day 4 Active hydroCHLOROthiazid e 12.5 mg tablet Take 1 tablet (12.5 mg total) by mouth daily before lunch Active irbesartan (AVAPRO) 150 mg tablet Take 1 tablet (150 mg total) by mouth every morning 4 Active levothyroxine (SYNTHROID) 75 mcg tablet Take 1 tablet (75 mcg total) by mouth every morning 4 Active terbinafine (LamiSIL) 250 mg tablet Take 1 tablet (250 mg total) by mouth every morning 4 Active timolol (TIMOPTIC) 0.5 % ophthalmic solution Administer 1 drop into both eyes 2 (two) times a day 5 Active acetaminophen (TYLENOL) 500 mg tablet Take 1 tablet (500 mg total) by mouth every 6 (six) hours as needed for pain Active leuprolide acetate (ELIGARD, 6 MONTH, SUBQ) Inject under the skin every 6 (six) months Active fexofenadine (PLACIDO) 60 mg tablet Take 1 tablet (60 mg total) by mouth daily Active docusate sodium (COLACE) 100 mg capsuleIndications :constipation Take 1 capsule (100 mg total) by mouth 2 (two) times a day 5 Active ondansetron ODT (ZOFRAN-ODT) 4 mg disintegrating tabletIndications: nausea and vomiting Take 1 tablet (4 mg total) by mouth every 6 (six) hours as needed for nausea or vomiting 20 tablet 1 5 Active meloxicam (MOBIC) 15 mg tablet Take 1 tablet (15 mg total) by mouth daily 30 tablet 11 5 026 Active aspirin 325 mg enteric coated tabletIndications: Deep Vein Thrombosis Prevention Take 1 tablet (325 mg total) by mouth 2 (two) times a day 0 5 Active Active Problems Problem Noted Date Diagnosed Date Primary osteoarthritis of right hip 07/16/2024 Social History Tobacco Use Types Packs/Day Years Used Date Smoking Tobacco: Former Cigarettes Q uit: 1979 Tobacco Cessation:Counseling Given: Not Answered AUDIT-C Answer Date Recorded Q1: How often do you have a drink containing alc ohol? 2-3 times a week 07/25/2024 Q2: How many drinks containi ng alcohol do you have on a typical day when you are drinking? 1 or 2 07/25/2024 Q3: How often do you have si x or more drinks on one occasion? Never 07/25/2024 Personal Safety Answer Date Recorded Have you ever been in or are you currently in a harmful physical or emotional relationship or is someone making you feel afraid or unsafe? Denies 08/08/2024 Sex and Gender Information Value Date Recorded Sex Assigned at Not on file Legal Sex Male 1:33 PM ASSISTANT PROFESSOR OF PHILOSOPHY Gender Identity Not on file Sexual Orientation Not on file Last Filed Vital Signs Vital Sign Reading Time Taken Comments Blood Pressure 157/76 08/09/2024 8:15 AM ASSISTANT PROFESSOR OF PHILOSOPHY Pulse 90 08/09/2024 8:15 AM ASSISTANT PROFESSOR OF PHILOSOPHY Temperature 36.7 C (98.1 F) 08/09/2024 8:15 AM ASSISTANT PROFESSOR OF PHILOSOPHY Respiratory Rate 18 08/09/2024 8:15 AM ASSISTANT PROFESSOR OF PHILOSOPHY Oxygen Saturation 97% 08/09/2024 8:15 AM ASSISTANT PROFESSOR OF PHILOSOPHY Inhaled Oxygen Concentration - - Weight 104.7 kg (230 lb 13.2 oz) 08/08/2024 7:50 AM ASSISTANT PROFESSOR OF PHILOSOPHY Height 175.3 cm (5' 9) 08/08/2024 7:50 AM ASSISTANT PROFESSOR OF PHILOSOPHY Body Mass Index 34.09 08/08/2024 7:50 AM ASSISTANT PROFESSOR OF PHILOSOPHY Plan of Treatment Not on file Medical Devices Implanted Type Area [employer] Advisor Device Identifier Shelf Expiration Date Model / Serial / Lot [employer] Shell Acetabular Trident Ii Tritanium E Od54mm Hip 11 Hole Sterile 709-04-54e - [id number] Implanted:Qty: 1 on 08/08/2024 by Huseyin Carver MD at [facility] Right: Hip [employer] [id number] 01/14/2029 709-04-54E / / [id number] [employer] Screw Bone Trident Ii L35mm Od6.5mm Low Profile Hexagonal Sterile 0877-1977 - [id number] Implanted:Qty: 1 on 08/08/2024 by Huseyin Carver MD at [facility] Right: Hip [employer] [id number] 05/22/2028 1224-0872 / / [id number] [employer] Screw Bone Trident Ii L40mm Od6.5mm Low Profile Hexagonal Sterile 0488-5276 - [id number] Implanted:Qty: 1 on 08/08/2024 by Huseyin Carver MD at [facility] Right: Hip [employer] [id number] 05/20/2029 2986-1924 / / [id number] [employer] Screw Bone Trident Ii L20mm Od6.5mm Low Profile Hexagonal Sterile 1959-6267 - [id number] Implanted:Qty: 1 on 08/08/2024 by Huseyin Carver MD at [facility] Right: Hip [employer] [id number] 05/21/2029 3562-1562 / / [id number] [employer] Screw Bone Trident Ii L25mm Od6.5mm Low Profile Hexagonal Sterile 5525-9690 - [id number] Implanted:Qty: 1 on 08/08/2024 by Huseyin Carver MD at [facility] Right: Hip [employer] [id number] 06/03/2029 7420-8630 / / [id number] [employer] Mdm 42mm 2 Mobility Modular Hip E Liner Acetabular Cocr [id number] - [id number] Implanted:Qty: 1 on 08/08/2024 by Huseyin Carver MD at [facility] Right: Hip [employer] [id number] 10/29/2028 [id number] / / [id number] [employer] Insert Holiness Adm X3 7236-2-848 - [id number] Implanted:Qty: 1 on 08/08/2024 by Huseyin Carver MD at [facility] Right: Hip [employer] [id number] 12/14/2028 7236-2-848 / / [id number] [employer] Actis L107 Mm Collar Hip 6 High Offset Stem Femoral [id number] - [id number] Implanted:Qty: 1 on 08/08/2024 by Huseyin Carver MD at [facility] Right: Hip [employer] [id number] 05/08/2033 [id number] / / [id number] [employer] Head Femoral Hip 12/14 Taper Articul Álvaro [employer] Delta 28mm Ceramic +5mm Offset [id number] - [id number] Implanted:Qty: 1 on 08/08/2024 by Huseyin Carver MD at [facility] Right: Hip [employer] [id number] 05/08/2029 [id number] / / [id number] Insurance UHC MEDICARE [facility] Address: [address] [address] [place] [address] [facility] MEDICARE [facility] Address: [address] [address] [place] [address] Advance Directives For more information, please contact: [phone] Documents on File Type Date Recorded Patient Research Statistician Expl anation ADVANCE DIRECTIVE 08/13/2024 8:44 AM POWER OF CASE MAKER-MEDICAL Advance Directives and Living Will 08/08/2024 7:50 AM * Full Code (Latest Code Status on File) Date Activated Date Inactivated Comments 08/08/2024 2:54 PM 08/09/2024 7:02 PM Care Teams Lead Cargo Mover Relationship Specialty Start Date End Date Nico Jose MD [facility] [facility] [address] [place] [address] PCP - General Family Medicine 07/25/24 Huseyin Carver MD [address] [facility] [address] [place] [address] Consulting Physician Orthopedic Surgery 08/08/24
--- OUTSIDE RECORDS SUMMARY | 2024-12-04 07:08 | XMS_ITS | Clinical Summary ---
Author Organization [facility] Address [address] [place] [address] Care Team Providers Care Boat And Plant Utility Supervisor Name Role Phone Nico Jose MD Primary Care Provider [phone] Huseyin Carver MD Unavailable [phone] Allergies Active Allergy Reactions Criticality Noted Date [...] Date Primary osteoarthritis of right hip 07/16/2024 Surgical History Surgery Date Site/Laterality Comments LUMBAR LAMINECTOMY 01/07/2024 - 02/06/2024 UMBILICAL HERNIA REPAIR Medical History Medical History Date Comments Primary osteoarthritis of right hip Sleep apnea patient states n o CPAP recommended Prostate cancer (HCC) XRT x 9 we eks and peped Hypertension Hypothyroidism Glaucoma Obesity (BMI 30.0-34.9) BMI 34 Social History Tobacco Use Types Packs/Day Years Used Date Smoking Tobacco: Former Cigarettes Q uit: 1980 Tobacco Cessation:Counseling Given: Not Answered AUDIT-C Answer [...] on file Legal Sex Male 1:33 PM DIRECTOR OF SCOUT WORK Gender Identity Not on file Sexual Orientation Not on file Obstetrics History Last Filed Vital Signs Vital Sign Reading Time Taken Comments Blood Pressure 157/76 08/09/2024 8:15 AM DIRECTOR OF SCOUT WORK Pulse 90 08/09/2024 8:15 AM DIRECTOR OF SCOUT WORK Temperature 36.7 C (98.1 F) 08/09/2024 8:15 AM DIRECTOR OF SCOUT WORK Respiratory Rate 18 08/09/2024 8:15 AM DIRECTOR OF SCOUT WORK Oxygen Saturation 97% 08/09/2024 8:15 AM DIRECTOR OF SCOUT WORK Inhaled Oxygen Concentration - - Weight 104.7 kg (230 lb 13.2 oz) 08/08/2024 7:50 AM DIRECTOR OF SCOUT WORK Height 175.3 cm (5' 9) 08/08/2024 7:50 AM DIRECTOR OF SCOUT WORK Body Mass Index 34.09 08/08/2024 7:50 AM DIRECTOR OF SCOUT WORK Plan of Treatment Health Maintenance Due Date Last Done Comments Depression Screening 1945 Hepatitis C Screening 1945 DTaP/Tdap/Td Vaccine (1 - Tdap) 1957 Hepatitis B Screening 1964 Pneumococcal vaccine 65+ (1 of 2 - PCV) 1965 Well Visit 65+ 2011 Covid-19 Vaccine (5 - Mixed Product risk ) 12/12/2024 06/13/2024, 06/06/2023, 04/13/2022, Additional history exists Fall Risk Assessment 08/09/2025 08/09/2024 Zoster Vaccine Completed 04/07/2022, 01/08, 05/09/2012 Influenza Vaccine Completed 03/07/2024, , 04/07/2022, Additional history exists Medical Devices Implanted Type Area Electrotyper Helper Device Identifier Shelf Expiration Date Model / Serial / Lot [employer] Shell Acetabular Trident Ii Tritanium E Od54mm Hip 11 Hole Sterile 709-04-54e - [id number] Implanted:Qty: 1 on 08/08/2024 by Huseyin Carver MD at [facility] Right: Hip [employer] [id number] 01/14/2029 709-04-54E / / [id number] [employer] Screw Bone Trident Ii L35mm Od6.5mm Low Profile Hexagonal Sterile 5982-2547 - [id number] Implanted:Qty: 1 on 08/08/2024 by Huseyin Carver MD at [facility] Right: Hip [employer] [id number] 05/22/2028 0526-2451 / / [id number] [employer] Screw Bone Trident Ii L40mm Od6.5mm Low Profile Hexagonal Sterile 7637-2204 - [id number] Implanted:Qty: 1 on 08/08/2024 by Huseyin Carver MD at [facility] Right: Hip [employer] [id number] 05/20/2029 1783-3505 / / [id number] [employer] Screw Bone Trident Ii L20mm Od6.5mm Low Profile Hexagonal Sterile 1814-9349 - [id number] Implanted:Qty: 1 on 08/08/2024 by Huseyin Carver MD at [facility] Right: Hip [employer] [id number] 05/21/2029 4778-3683 / / [id number] [employer] Screw Bone Trident Ii L25mm Od6.5mm Low Profile Hexagonal Sterile 2215-5229 - [id number] Implanted:Qty: 1 on 08/08/2024 by Huseyin aCrver MD at [facility] Right: Hip [employer] [id number] 06/03/2029 5312-3479 / / [id number] [employer] Mdm 42mm 2 Mobility Modular Hip E Liner Acetabular Cocr [id number] - [id number] Implanted:Qty: 1 on 08/08/2024 by Huseyin Carver MD at [facility] Right: Hip [employer] [id number] 10/29/2028 [id number] / / [id number] [employer] Insert [employer] X3 7236-2-848 - [id number] Implanted:Qty: 1 on 08/08/2024 by Huseyin Carver MD at [facility] Right: Hip [employer] [id number] 12/14/2028 7236-2-848 / / [id number] [employer] Actis L107 Mm Collar Hip 6 High Offset Stem Femoral [id number] - [id number] Implanted:Qty: 1 on 08/08/2024 by Huseyin Carver MD at [facility] Right: Hip [employer] [id number] 05/08/2033 [id number] / / [id number] [employer] Head Femoral Hip 12/14 Taper Articul Álvaro [employer] Delta 28mm Ceramic +5mm Offset [id number] - [id number] Implanted:Qty: 1 on 08/08/2024 by Huseyin Carver MD at [facility] Right: Hip [employer] [id number] 05/08/2029 [id number] / / [id number] Insurance [facility] MEDIC[facility] Address: [address] [address] [facility] MEDICARE ADVANTAGE [facility] MEDIC[facility] Address: [address] [address] [place] [address] Advance Directives For more information, please contact: [phone] Documents on File Type Date Recorded Patient Perfume Compounder Expl anation ADVANCE DIRECTIVE 08/13/2024 8:44 AM POWER OF TRUST VAULT CUSTODIAN-MEDICAL Advance Directives and Living Will 08/08/2024 7:50 AM * Full Code (Latest Code Status on File) Date Activated Date Inactivated Comments 08/08/2024 2:54 PM 08/09/2024 7:02 PM Care Teams Boat And Plant Utility Supervisor Relationship Specialty Start Date End Date Nico Jose MD [address] [facility] [address] [place] [address] PCP - General Family Medicine 07/25/24 Huseyin Carver MD [address] [facility] [address] [place] [address] Consulting Physician Orthopedic Surgery 08/08/24
--- OUTSIDE RECORDS SUMMARY | 2024-12-04 07:08 | XMS_ITS | Clinical Summary ---
Author Organization [facility] [address] [place] [address] Address [address] [place] [address] Care Team Providers Care Incinerator Operator Name Role Phone Nico Jose MD Primary Care Provider [phone] Active Problems Problem Noted Date Diagnosed Date RAQUEL (obstructive sleep apnea) 03/03/2023 Social History Tobacco Use Types Packs/Day Years Used Date Smoking Tobacco: Never Assessed Sex and Gender Information Value Date Recorded Sex Assigned at Not on file Legal Sex Male 2:49 PM CDT Gender Identity Not on file Sexual Orientation Not on file Plan of Treatment Health Maintenance Due Date Last Done Comments DTAP/TDAP/TD VACCINES (1 - Tdap) 1965 PNEUMOCOCCAL VACCINE 50+ YEARS (1 of 1 - PCV) 04/04/19 96 ZOSTER VACCINE (1 of 2) 1996 RSV VACCINE (60+ or ) (1 - 1-dose 75+ series) 2021 INFLUENZA VACCINE (#1) 2024 Insurance [employer] Care Teams Incinerator Operator Relationship Specialty Start Date End Date Nico Jose MD [facility] [address] PCP - General Family Practice 12/18/22
[2024-12-04 10:07] LABS: Alanine Aminotransferase 18 U/L (6-50); Albumin Level 4.2 g/dL (3.5-5.1); Alkaline Phosphatase 65 U/L (38-126); Anion Gap 6 mmol/L (4-12); Aspartate Amino Transferase 27 U/L (17-59); Bilirubin,Total 0.5 mg/dL (0.2-1.3); Blood Urea Nitrogen 30 mg/dL (9-20); Calcium 9.5 mg/dL (8.4-10.2); Carbon Dioxide 30 mmol/L (22-30); Chloride 103 mmol/L (98-107); Estimated Glomerular Filt Rate > 60; Glucose 100 mg/dL (65-110); Potassium 4.5 mmol/L (3.4-5.0); Sodium 139 mmol/L (137-145)
== END 2024-12-04 07:06 | disposition home or self-care (01) ==
LOC: ANHLAB 07:06
PROVIDERS: PCP Family Medicine; Visit Provider Family Medicine
DX: E03.9 Hypothyroidism, unspecified (principal); T78.3XXA Angioneurotic edema, initial encounter
CPT/HCPCS: 36415; 80053; 84443

== ENCOUNTER 2025-04-09 11:43 | Outpatient (CLI) | payer MEDICARE, SELFPAY ==
--- OUTSIDE RECORDS SUMMARY | 2025-01-07 02:01 | XMS_ITS | Continuity of Care Document ---
Author Organization [facility] Address [address] [place] [address] Phone Care Team Providers Care Angle Shear Set Up Operator Name Role Phone No Information Unavailable Unavailable Allergies, Adverse Reactions, Alerts Substance Reaction Status Criticality Sulfa (Sulfonamide Antibiotics) Rash, Swelling Active No Information Penicillins Rash, Swelling Active No Informatio n Medications Medication Instructions Dosage Effective Dates (start - stop) Status Comments timolol maleate 0.5 % eye drops - Active irbesartan 150 mg tablet TAKE 1 TABLET B Y MOUTH EVERY DAY - Active levothyroxine 75 mcg tablet TAKE 1 TABLE T BY MOUTH EVERY DAY - Active hydrochlorothiazide 12.5 mg tablet TAKE 1 TABLET BY MOUTH EVERY DAY - Active terbinafine HCl 250 mg tablet TAKE 1 TABLET BY MOUTH EVERY DAY - Active Eligard 7.5 mg (1 month) subcutaneous syringe inject (7.5MG) by subcutaneous route every month 7.5 MG - Active Rachael Allergy 60 mg tablet take 1 tablet by oral route 2 times every day 60 MG - Active Non-Aspirin 80 mg chewable tablet - Active Nanci Low Dose Aspirin 81 mg tablet,delayed release take 1 tablet by oral route every day 81 MG - Active Procedures Procedure Date X-ray Exam Hip Unilat With Pelvis When P erf 2-3 View Global/Postop followup visit X-ray Exam Hip Unilat With Pelvis When P erf 2-3 View Global/Postop followup visit Total Hip Replacement Patients with documented shared decision -making Patients who are evaluated for venous th romboembol Office/outpatient visit,karrie spaulding 2024 BMI Documented Above Normal Limit F/U Pl an Doc Advance Directives Directive Yes / No Effective Date File Name No Information Encounters Encounter Description Practice Location Reason(s) For Visit Diagnoses Date Provider Providers Copied on Encounter [facility], [address] [place] [address], [id number], tel:[phone] No Information No Information [facility], [address] [place] [address], [id number], tel:[phone] [facility] right hip (chief complaint) Pain in right hip Wen Fontanez . [address], [id number], [place]. tel:[phone] Referring Provider: Nico Jose, [address] [place], [address]. tel:[phone] [facility] Bid[facility], [address], [id number], [place] tel:[phone] [facility] Bid[facility] Follow Up of right posterior total hip arthroplasty (chief complaint) Pain in right hipPresence of right artificial hip joint 5 Galo Avery. [address], [id number], [place]. tel:[phone] Referring Provider: Nico Jose, [address] [place], [address]. tel:[phone] [facility] Bid[facility], [address], [id number], [place] tel:[phone] [facility] No Information Wen Fontanez . [address], [id number], . tel:[phone] Referring Provider: Huseyin Salinas, [address] [place] [address], [place], [address]. tel:[phone] [facility], [address] [place] [address], [id number], tel:[phone] [facility] Idiopathic aseptic necrosis of right femur Wen Fontanez . [address] [facility], [facility] [address], [place], [place], [id number], [place]. tel:[phone] Office[facility]outpa [facility]ient visit,[facility], [address] [place] [address], [id number], tel:[phone] [facility] pain in the right hip (chief complaint) Pain in right hipIdiopathi c aseptic necrosis of right femur Wen Fontanez . [facility], [place] [address], [place], [place], [id number], [place]. tel:[phone] Referring Provider: Bennie Evans, [address] [place] [address], [place], [address]. tel:[phone] [facility], [address] [place] [address], [id number], tel:[phone] [facility] No Information Wen Fontanez . [address] [facility], [address], [id number], [place]. tel:[phone] Family History Family Member Type Diagnosis Age At Onset Mother Problem (finding) Kidney Disease Mother Problem (finding) Diabetes Payers Payer name Insurance type Covered democrat ID Authoriza tion(s) [employer] Medicare Advantage [id number] Social History Type Description Quantity Date Captured Comments Sex Male Smoking Status No Information Chief Complaint And Reason For Visit No Information Reason For Referral Reason For Referral No Information Plan Of Treatment Date Type Action Status Referral Ordered: X-ray Exam Hip Unilat With Pelvis When Perf 2-3 View RT hip ordered History Of Present Illness Encounter Date Complaint History Of Prese nt Illness right hip Gordon is a 79 ye ar-old male who presents to the office for evaluation of right hip pain. Follow Up of right p osterior total hip arthroplasty Gordon presents today for initial post operative evaluation of his right posterior total hip arthroplasty, date of surgery 08/08/2024. Denies injury, trauma or fall since surgical intervention. Denies fever, chills, generalized feelings of illness or malaise. Indicates compliance with the use of aspirin for DVT prophylaxis, and maintaining posterior hip precautions. He is participating in physical therapy, and feels that it is going well. Endorses pain in the gluteal region that is very mild intermittent and well-managed with acetaminophen. Pain is exacerbated with standing for an extended period of time. He is ambulating with the use of a walker at today's visit and is accompanied to the visit by his . pain in the right hip Gordon pres ents to the office today for evaluation of his chronic nontraumatic right hip pain. Denies injury, trauma, or fall within the last year. He has a past medical history complicated by radiation treatments for prostate cancer in 2020 and recent neurosurgery on his lumbar region for treatment of 5 bulging disks. States that the pain in the hip has been present for approximately 6 months. He has obtained cortisone injections which were of no efficacy. He is experiencing weakness in the right lower extremity, stiffness, popping. He rates his pain at an 8 out of 10 with a constant dull intermittent sharp nature that is worsened with ascending and descending stairs, weightbearing and ambulation. Over the last few weeks his pain is increased to the point that he has had to transition to the use of a walker for all ambulation and states that he is unable to actively range of motion the hip for ambulation due to the severity of his pain. He is utilizing gabapentin, ibuprofen, acetaminophen and activity modifications for pain control as needed. He is ambulating with the use of a walker at today's office visit and accompanied to the visit by his . Hip Functional Status Date Functional Assessmen t No Information Instructions Date Instruction Additional Infor katia 1) Continue DVT prop hylaxis until 6 weeks postop.2) Maintain posterior hip precautions until 8 weeks post op. 3) Continue physical therapy. Recommend taking a cane to physical therapy for transition to use in a safe structured environment.4) Avoid submergence of incision site in standing water until at least 8 weeks postop.5) Continue pain control measures with rest, ice, elevation, over the counter oral analgesics, prescription analgesics and NSAIDs. 6) Continue the use of compression stockings for edema control as needed. 7) Avoid dental care until three months postop unless emergent, utilize an antibiotic prior to all dental visits for 2 years, and notify the office of need.Verbal consent was obtained. Patient was standing. Sutures were removed without complication or difficulty. He was provided with post suture removal instructions and discharged in stable condition. All question were answered and concerns addressed. Gordon demonstrates appropriate understanding of the diagnosis and the plan of care at this time and will follow up in 8 weeks.Dictation completed with Nutmeg software, grammatical variances and spelling errors may inadvertently occur. Related to Presence of right artificial hip joint Patient seen and demetrice luated with Dr. Huseyin Dave failing conservative management of hip pain, including physical therapy, weight management, intra-articular cortisone injections, anti-inflammatories, and activity modification. The patient wishes to pursue hip arthroplasty. I have explained that this operation is designed to decrease pain in the hip and improve function. After a thorough explanation of the risks benefits and alternatives to treatment. The patient wishes to pursue a hip arthroplasty. The risks benefits and alternatives to treatment were discussed. These include but are not limited to, bleeding, blood transfusion, DVT, PE, mechanical complications of loosening, infection, dislocation, and leg length discrepancy, fracture, damage to nerves arteries and other structures around the hip.We discussed in detail the specifics of the operation consisting of the pre-operative evaluation, the surgical procedure, and the post operative recovery course. I explained the prosthetic ( ceramic on polyethylene bearing). We discussed the risks and benefits. Specifically, bleeding, possible blood transfusion, DVT, PE, dislocation, infection, persistent pain, mechanical loosening, leg length discrepancy, fracture, possible damage to nerves and arteries.. We also obtained templating radiographs to size the components and measure the pre-operative leg lengths. We discussed the hospital stay vs outpatient total joint procedure and the recovery period. Including, post op PT and DVT prophylaxis. Appropriate medical evaluation will be obtained and the patient will be scheduled for total hip arthroplasty.[facility] -- likely dual mobility, press-fit stem activeAspirin 81 twice a day for DVT prophylaxis Related to Idiopathic aseptic necrosis of right femur Assessments Type Assessment Date No Information Patient Care Teams Name Effective Dates (start - stop) Status Members No Information
--- OUTSIDE RECORDS SUMMARY | 2025-04-09 12:01 | XMS_ITS | Clinical Summary ---
Author Organization [facility] Address [address], [address] [address] Phone Care Team Providers Care Bark Tanner Name Role Phone Nico Jose MD Primary Care Provider [phone] Allergies Active Allergy Reactions Criticality Noted Date [...] 1996 Zoster Immunization (1 of 2) 1996 Medicare Initial AWV [id number] 01/06/2013 Respiratory Syncytial Virus (RSV) Immunization (Adult) (1 - 1-dose 75+ series) 2021 Influenza Immunization (#1) 2025 SARS-COV-2 Immunization ( season) 2025 Colonoscopy Discontinued 06/13/2017 Colorectal Cancer Screening Discontinued Cologuard Discontinued Hepatitis B Immunization Aged Out No longer eligible based on patient's age to complete this topic Human Papillomavirus (HPV) Immunization Aged Out No longer eligible b ased on patient's age to complete this topic [...] to Health Maintenance Insurance MEDICARE Care Teams Bark Tanner Relationship Specialty Start Date End Date Nico Jose MD [address] [place] [address] [address] [place] [address] PCP - General Family Medicine 06/20/17
--- OUTSIDE RECORDS SUMMARY | 2025-04-09 12:01 | XMS_ITS | Clinical Summary ---
Author Organization [facility] Address [address] [place] [address] Care Team Providers Care Customs Officer Name Role Phone Nico Jose MD Primary Care Provider [phone] Huseyin Carver MD Unavailable [phone] Allergies Active Allergy Reactions Criticality Noted Date [...] Date Primary osteoarthritis of right hip 07/16/2024 Encounters Date Type Department Care Team Description 04/01/2025 9:00 AM CDT Office Visit [facility] Medicine ENT [address] [place] [address] Medical Office Building [address] [place] [address] Anjelica Finch NP Tinnitus of both ears (Primary Dx); Sensorineural hearing loss (SNHL) of both ears; Wax in ear 03/30/2025 3:00 PM CDT Procedure visit [facility] Medicine Otolaryngology [address] [place] [address] Medical Office Building [address] [place] [address] Winston Del Rio Au.D. Sensorineural hearing loss (SNHL) of both ears (Primary Dx) from Last 3 Months Surgical History Surgery Date Site/Laterality Comments LUMBAR LAMINECTOMY 01/07/2024 - 02/06/2024 UMBILICAL HERNIA REPAIR Medical History Medical History Date Comments Primary osteoarthritis of right hip Sleep apnea patient states n o CPAP recommended Prostate cancer (HCC) XRT x 9 we eks and eligard Hypertension Hypothyroidism Glaucoma Obesity (BMI 30.0-34.9) BMI 34 HL (hearing loss) 1999 Allergic rhinitis Sinusitis Tinnitus 2010 Family History Medical History Relation Name Comments Diabetes Mother Relation Name Status Comments Mother Social History Tobacco Use Types Packs/Day [...] on file Legal Sex Male 1:33 PM [employer] Gender Identity Not on file Sexual Orientation Not on file Obstetrics History Last Filed Vital Signs Vital Sign Reading Time Taken Comments Blood Pressure 160/88 04/01/2025 9:01 AM CDT Pulse 48 04/01/2025 9:01 AM CDT Temperature 36.7 C (98.1 F) 08/09/2024 8:15 AM [employer] Respiratory Rate 18 08/09/2024 8:15 AM [employer] Oxygen Saturation 97% 08/09/2024 8:15 AM [employer] Inhaled Oxygen Concentration - - Weight 104.3 kg (230 lb) 04/01/2025 9:01 AM CDT Height 175.3 cm (5' 9) 04/01/2025 9:01 AM CDT Body Mass Index 33.97 04/01/2025 9:01 AM CDT Plan of Treatment Health Maintenance Due Date Last Done Comments Depression Screening 1945 Hepatitis C Screening 1945 Hepatitis B Screening 1964 DTaP/Tdap/Td Vaccine (1 - Tdap) 12/08/2006 7 Well Visit 65+ 2011 Covid-19 Vaccine (5 - Mixed Product risk season) 2025 06/13/2024, 06/06/2023, 04/13/2022, Additional history exists Influenza Vaccine (#1) 2025 , 04/19/2023, 04/07/2022, Additional history exists Fall Risk Assessment 08/09/2025 08/09/2024 Pneumococcal vaccine 65+ Completed 07/12/2015, 09/2013 Zoster Vaccine Completed 04/07/2022, 01/08, 05/09/2012 Medical Devices Implanted Type Area Mobile Paint Specialist Device Identifier Shelf Expiration Date Model / Serial / Lot [employer] Shell Acetabular Trident Ii Tritanium E Od54mm Hip 11 Hole Sterile 709-04-54e - [id number] Implanted:Qty: 1 on 08/08/2024 by Huseyin Carver MD at [facility] Right: Hip [employer] [id number] 01/14/2029 709-04-54E / / [id number] [employer] Screw Bone Trident Ii L35mm Od6.5mm Low Profile Hexagonal Sterile 9277-0166 - [id number] Implanted:Qty: 1 on 08/08/2024 by Huseyin Carver MD at [facility] Right: Hip [employer] [id number] 05/22/2028 [id number] / / [id number] [employer] Screw Bone Trident Ii L40mm Od6.5mm Low Profile Hexagonal Sterile 9636-8074 - [id number] Implanted:Qty: 1 on 08/08/2024 by Huseyin Carver MD at [facility] Right: Hip [employer] [id number] 05/20/2029 5539-8242 / / [id number] [employer] Screw Bone Trident Ii L20mm Od6.5mm Low Profile Hexagonal Sterile 0421-7281 - [id number] Implanted:Qty: 1 on 08/08/2024 by Huseyin Carver MD at [facility] Right: Hip [employer] [id number] 05/21/2029 8162-5573 / / [id number] [employer] Screw Bone Trident Ii L25mm Od6.5mm Low Profile Hexagonal Sterile 1670-3826 - [id number] Implanted:Qty: 1 on 08/08/2024 by Huseyin Carver MD at [facility] Right: Hip [employer] [id number] 06/03/2029 8382-8719 / / [id number] [employer] Mdm 42mm 2 Mobility Modular Hip E Liner Acetabular Cocr [id number] - [id number] Implanted:Qty: 1 on 08/08/2024 by Huseyin Carver MD at [facility] Right: Hip [employer] [id number] 10/29/2028 [id number] / / [id number] [employer] Insert Rastafarian Adm X3 /48 7236-2-848 - [id number] Implanted:Qty: 1 on 08/08/2024 by Huseyin Carver MD at [facility] Right: Hip [employer] [id number] 12/14/2028 7236-2-848 / / [id number] [employer] Actis L107 Mm Collar Hip 6 High Offset Stem Femoral [id number] - [id number] Implanted:Qty: 1 on 08/08/2024 by Huseyin Carver MD at [facility] Right: Hip [employer] [id number] 05/08/2033 [id number] / / [id number] [employer] Head Femoral Hip /14 Taper Articul Álvaro [employer] Delta 28mm Ceramic +5mm Offset [id number] - [id number] Implanted:Qty: 1 on 08/08/2024 by Huseyin Carver MD at [facility] Right: Hip [employer] [id number] 05/08/2029 [id number] / / [id number] Procedures Procedure Name Priority Date/Time Associated Diagnosis Comments AUDBASE RESULTS 03/30/2025 2:39 PM CDT from Last 3 Months Results * Aud[facility] Results (03/30/2025 2:39 PM CDT) Provider Scanning AUDIOLOGY SERVICES ORDERABLES Final Result from Last 3 Months Insurance UHC MEDICARE ADVANTAGE UHC MEDICARE ADVANTAGE Member Subscriber Plan / Payer (Ef fective 2024-Present) Name:Gordon Mcmullen Relation to Subscriber:Self Name:Gordon Mcmullen Payer ID:[id number] (NAIC) Type:[facility] Address: [address] [id number] Advance Directives For more information, please contact: [phone] Documents on File Type Date Recorded Patient Phlebotomy Specialist Expl anation ADVANCE DIRECTIVE 08/13/2024 8:44 AM POWER OF CRIMINAL JUDGE-MEDICAL Advance Directives and Living Will 08/08/2024 7:50 AM * Full Code (Latest Code Status on File) Date Activated Date Inactivated Comments 08/08/2024 2:54 PM 08/09/2024 7:02 PM Care Teams Customs Officer Relationship Specialty Start Date End Date Nico Jose MD [address] [place] [address] [address] [place] [address] PCP - General Family Medicine 07/25/24 Huseyin Carver MD [address] [facility] [address] [address] Consulting Physician Orthopedic Surgery 08/08/24
--- OUTSIDE RECORDS SUMMARY | 2025-04-09 12:01 | XMS_ITS | Clinical Summary ---
Author Organization [employer] [address] [place] [address] Address [address] [place] [address] Care Team Providers Care Probate Lawyer Name Role Phone Nico Jose MD Primary Care Provider [phone] Active Problems Problem Noted Date Diagnosed Date [...] 1-dose 75+ series) 2021 INFLUENZA VACCINE (#1) 2025 Insurance [employer] Care Teams Probate Lawyer Relationship Specialty Start Date End Date Nico Jose MD [facility] [address] PCP - General Family Practice 12/18/22
[2025-04-09 13:14] LABS: Alanine Aminotransferase 20 U/L (6-50); Albumin Level 4.2 g/dL (3.5-5.1); Alkaline Phosphatase 61 U/L (38-126); Anion Gap 7 mmol/L (4-12); Aspartate Amino Transferase 34 U/L (17-59); Bilirubin,Total 0.7 mg/dL (0.2-1.3); Blood Urea Nitrogen 26 mg/dL (9-20); Calcium 9.6 mg/dL (8.4-10.2); Carbon Dioxide 28 mmol/L (22-30); Chloride 105 mmol/L (98-107); Estimated Glomerular Filt Rate > 60; Glucose 102 mg/dL (65-110); Potassium 3.8 mmol/L (3.4-5.0); Sodium 140 mmol/L (137-145); Total Protein 7.3 g/dL (6.3-8.2)
[2025-04-09 13:56] LABS: Thyroid Stimulating Hormone 1.480 uIU/mL (0.465-4.680)
== END 2025-04-09 11:44 | disposition home or self-care (01) ==
LOC: ANHGOSHLAB 11:43
PROVIDERS: PCP Family Medicine; Visit Provider Family Medicine
DX: E03.9 Hypothyroidism, unspecified (principal); E87.6 Hypokalemia
CPT/HCPCS: 36415; 80053; 84443